=== PATIENT | female | born 1960 ===

== ENCOUNTER 2024-06-21 07:14 | Day surgery (SDC) | payer OTHER ==
[~2024-06-21 07:14] MED LIST: CRESTOR40 MG PO
[2024-06-21] MEDS ORDERED: POVIDONE-IODINE 118 ML BOTT TOP ONE (11:12)
[2024-06-21] MEDS ORDERED: CEFOXITIN SODIUM 2,000 MG VIAL IV ONE (11:17)
[2024-06-21] MEDS ORDERED: PROMETHAZINE HCL 50 MG/ML AMPUL IM ONE (13:15)
[2024-06-21] MEDS ORDERED: MORPHINE SULFATE 4 MG/ML VIAL IV PRN (13:15)
[2024-06-21] MEDS ORDERED: MACROBID 100 M100 MG PO (13:21)
[2024-06-21] MEDS ORDERED: NAPR500T14 PO (13:21)
== END 2024-06-21 17:25 | disposition home or self-care (01) ==
LOC: CIR.AMB 07:14
PROVIDERS: ATTEND Obstetrics & Gynecology
DX: N84.0 Polyp of corpus uteri (principal); D25.0 Submucous leiomyoma of uterus; N95.0 Postmenopausal bleeding; N88.2 Stricture and stenosis of cervix uteri